=== PATIENT | female | born 1950 | race Caucasian/White ===

== ENCOUNTER 2023-07-30 08:55 | Inpatient (IN) | payer OTHER, MEDICAID ==
[~2023-07-30] VITALS: Ht 154.9 cm; Wt 65.8 kg
[2023-07-30 08:57] VITALS: BP 123/70; PULSE 62; RESP 16; TEMP 97.3; O2SAT 98
[2023-07-30 09:39] LABS: BASOPHILS # (AUTO) 0.1 K/uL (0.00-0.22); BASOPHILS % (AUTO) 1.1 % (0.0-2.0); EOSINOPHILS # (AUTO) 0.2 K/uL (0-0.4); HEMATOCRIT 36.8 % (36-48); HEMOGLOBIN 12.3 g/dL (12.0-16.0); LYMPHOCYTES # (AUTO) 1.7 K/uL (2.5-16.5); LYMPHOCYTES % (AUTO) 29.4 % (20.5-51.1); MEAN CORPUSCULAR HEMOGLOBIN 30 pg (27-31); MEAN CORPUSCULAR HGB CONC 33 g/dL (33-37); MEAN CORPUSCULAR VOLUME 88.9 fL (80-94); MONOCYTES # (AUTO) 0.4 K/uL (0.8-1.0); MONOCYTES % (AUTO) 6.7 % (1.7-9.3); NEUTROPHILS # (AUTO) 3.3 K/uL (1.8-7.7); NEUTROPHILS % (AUTO) 58.8 % (42.2-75.2); PLATELET COUNT (AUTO) 245 K/uL (140-450); RED BLOOD CELL COUNT(AUTO) 4.14 MIL/uL (4.20-5.40); RED CELL DISTRIBUTION WIDTH 13.9 % (11.6-13.7); WHITE BLOOD COUNT (AUTO) 5.7 K/uL (4.8-10.8)
[2023-07-30 09:48] LABS: CALCIUM 8.6 mg/dL (8.5-10.1); CARBON DIOXIDE 27.4 mmol/L (21-32); CHLORIDE 109 mmol/L (98-107); CREATININE 0.7 mg/dL (0.6-1.3); GLUCOSE 93 mg/dL (74-106); POTASSIUM 3.4 mmol/L (3.5-5.1); SODIUM SERUM 144 mmol/L (136-145); UREA NITROGEN, BLOOD 12 mg/dL (7-18)
[2023-07-30 09:52] LABS: INR 1.03 (0.8-1.2); PARTIAL THROMBOPLASTIN TIME 26.7 secs (22-35.6); PROTHROMBIN TIME 10.8 secs (10.8-13.4)
[2023-07-30 09:58] LABS: ALANINE AMINOTRANSFERASE 21 U/L (12-78); ALKALINE PHOSPHATASE 127 U/L (50-136); ASPARTATE AMINOTRANSFERASE 20 U/L (15-37); BILIRUBIN,DIRECT 0.2 mg/dL (0.0-0.3); LIPASE 37 U/L (16-77); MAGNESIUM 2.1 mg/dL (1.8-2.4); PHOSPHORUS 3.9 mg/dL (2.5-4.9); TOTAL BILIRUBIN 0.7 mg/dL (0.0-1.0); TOTAL PROTEIN, SERUM 6.5 g/dL (6.4-8.2)
[2023-07-30] MEDS ORDERED: LORazepam 1 MG TAB PO PRN (17:00)
[2023-07-30] MEDS ORDERED: hydrALAZINE 20 MG/ML VIAL IVP PRN (17:00)
[2023-07-30] MEDS ORDERED: HYDROcodone/APAP 5/325 MG 1 TAB TAB PO PRN (17:00)
[2023-07-30] MEDS ORDERED: ONDANSETRON 4 MG/2 ML VIAL IVP PRN (17:00)
[2023-07-30] MEDS ORDERED: ZOLPIDEM 5 MG TAB PO PRN (17:00)
[2023-07-30] MEDS: NACL 0.9% 1,000 ML IV SCH (17:34)
[2023-07-30] MEDS ORDERED: ASPI-1822 PO (18:30)
[2023-07-30] MEDS ORDERED: ATOR40TA40 PO (18:31)
[2023-07-30] MEDS ORDERED: CEPH-588 PO (18:32)
[2023-07-30] MEDS ORDERED: FLUT16SP10 NS ×2 (18:47)
[2023-07-30] MEDS ORDERED: MELA5TAB68 PO (18:49)
[2023-07-30] MEDS ORDERED: METO50TE PO (18:50)
[2023-07-30] MEDS ORDERED: QUET50TA PO (18:51)
[2023-07-30] MEDS ORDERED: SENN-73 PO (18:52)
[2023-07-30 19:21] VITALS: O2SAT 99
[2023-07-30 20:35] VITALS: BP 148/63; PULSE 59; PULSE 60; RESP 16; TEMP 98.1; O2SAT 97
[2023-07-31] VITALS (7 sets, daily range): BP systolic 126–156; BP diastolic 57–76; PULSE 57–78; RESP 16–18; TEMP 96.8–99; O2SAT 97–99
[2023-07-31 07:04] LABS: BASOPHILS % (AUTO) 0.5 % (0.0-2.0); EOSINOPHILS # (AUTO) 0.3 K/uL (0-0.4); EOSINOPHILS % (AUTO) 4.3 % (0.0-4.0); HEMATOCRIT 39.1 % (36-48); HEMOGLOBIN 13.1 g/dL (12.0-16.0); LYMPHOCYTES # (AUTO) 1.9 K/uL (2.5-16.5); LYMPHOCYTES % (AUTO) 28.3 % (20.5-51.1); MEAN CORPUSCULAR HEMOGLOBIN 29 pg (27-31); MEAN CORPUSCULAR HGB CONC 34 g/dL (33-37); MEAN CORPUSCULAR VOLUME 87.5 fL (80-94); MONOCYTES # (AUTO) 0.4 K/uL (0.8-1.0); MONOCYTES % (AUTO) 6.2 % (1.7-9.3); NEUTROPHILS # (AUTO) 4.2 K/uL (1.8-7.7); NEUTROPHILS % (AUTO) 60.7 % (42.2-75.2); PLATELET COUNT (AUTO) 258 K/uL (140-450); RED BLOOD CELL COUNT(AUTO) 4.47 MIL/uL (4.20-5.40); RED CELL DISTRIBUTION WIDTH 14.1 % (11.6-13.7); WHITE BLOOD COUNT (AUTO) 6.9 K/uL (4.8-10.8)
[2023-07-31] MEDS: PANTOPRAZOLE 40 MG INJ VIAL IVP SCH (08:47)
[2023-07-31] MEDS: DOCUSATE SODIUM 100 MG GELCAP PO SCH (09:00)
[2023-07-31 11:07] LABS: ALANINE AMINOTRANSFERASE 26 U/L (12-78); ALBUMIN 3.1 g/dL (3.4-5.0); ALKALINE PHOSPHATASE 131 U/L (50-136); ANION GAP 17.8 (8-16); ASPARTATE AMINOTRANSFERASE 23 U/L (15-37); CALCIUM 8.4 mg/dL (8.5-10.1); CARBON DIOXIDE 22.8 mmol/L (21-32); CHLORIDE 107 mmol/L (98-107); CREATININE 0.6 mg/dL (0.6-1.3); GLUCOSE 75 mg/dL (74-106); POTASSIUM 3.6 mmol/L (3.5-5.1); SODIUM SERUM 144 mmol/L (136-145); TOTAL BILIRUBIN 0.6 mg/dL (0.0-1.0); UREA NITROGEN, BLOOD 9 mg/dL (7-18)
[2023-07-31 11:52] LABS: CHOL/HDL RATIO 2.2 (1-4.5)
[2023-07-31] MEDS: ASPIRIN 81 MG TAB.CHEW PO SCH (13:48)
[2023-07-31] MEDS: ATORVASTATIN 80 MG TAB PO SCH (13:48)
[2023-08-01] VITALS (7 sets, daily range): BP systolic 112–137; BP diastolic 55–83; PULSE 63–78; RESP 14–18; TEMP 97.2–98.7; O2SAT 95–98
[2023-08-01 07:28] LABS: BASOPHILS # (AUTO) 0.1 K/uL (0.00-0.22); BASOPHILS % (AUTO) 0.8 % (0.0-2.0); EOSINOPHILS # (AUTO) 0.2 K/uL (0-0.4); EOSINOPHILS % (AUTO) 3.1 % (0.0-4.0); HEMATOCRIT 38.7 % (36-48); HEMOGLOBIN 13.1 g/dL (12.0-16.0); LYMPHOCYTES # (AUTO) 1.9 K/uL (2.5-16.5); LYMPHOCYTES % (AUTO) 24.4 % (20.5-51.1); MEAN CORPUSCULAR HEMOGLOBIN 30 pg (27-31); MEAN CORPUSCULAR HGB CONC 34 g/dL (33-37); MEAN CORPUSCULAR VOLUME 87.6 fL (80-94); MONOCYTES # (AUTO) 0.5 K/uL (0.8-1.0); MONOCYTES % (AUTO) 6.2 % (1.7-9.3); NEUTROPHILS % (AUTO) 65.5 % (42.2-75.2); PLATELET COUNT (AUTO) 267 K/uL (140-450); RED BLOOD CELL COUNT(AUTO) 4.42 MIL/uL (4.20-5.40); WHITE BLOOD COUNT (AUTO) 7.7 K/uL (4.8-10.8)
[2023-08-01 08:13] LABS: ALANINE AMINOTRANSFERASE 20 U/L (12-78); ALBUMIN 2.9 g/dL (3.4-5.0); ALKALINE PHOSPHATASE 120 U/L (50-136); ANION GAP 13.2 (8-16); ASPARTATE AMINOTRANSFERASE 19 U/L (15-37); CALCIUM 8.6 mg/dL (8.5-10.1); CARBON DIOXIDE 25.3 mmol/L (21-32); CHLORIDE 107 mmol/L (98-107); CREATININE 0.7 mg/dL (0.6-1.3); GLUCOSE 80 mg/dL (74-106); POTASSIUM 3.5 mmol/L (3.5-5.1); SODIUM SERUM 142 mmol/L (136-145); TOTAL BILIRUBIN 0.9 mg/dL (0.0-1.0); TOTAL PROTEIN, SERUM 6.6 g/dL (6.4-8.2); UREA NITROGEN, BLOOD 8 mg/dL (7-18)
[2023-08-02] VITALS: BP 148/67; PULSE 62; RESP 16; TEMP 97.5; O2SAT 98
[2023-08-02 06:48] LABS: BASOPHILS % (AUTO) 0.6 % (0.0-2.0); EOSINOPHILS # (AUTO) 0.2 K/uL (0-0.4); EOSINOPHILS % (AUTO) 3.3 % (0.0-4.0); HEMATOCRIT 37.9 % (36-48); HEMOGLOBIN 12.6 g/dL (12.0-16.0); LYMPHOCYTES # (AUTO) 1.9 K/uL (2.5-16.5); LYMPHOCYTES % (AUTO) 25.4 % (20.5-51.1); MEAN CORPUSCULAR HEMOGLOBIN 29 pg (27-31); MEAN CORPUSCULAR HGB CONC 33 g/dL (33-37); MEAN CORPUSCULAR VOLUME 87.7 fL (80-94); MONOCYTES # (AUTO) 0.6 K/uL (0.8-1.0); MONOCYTES % (AUTO) 7.9 % (1.7-9.3); NEUTROPHILS # (AUTO) 4.7 K/uL (1.8-7.7); NEUTROPHILS % (AUTO) 62.8 % (42.2-75.2); PLATELET COUNT (AUTO) 247 K/uL (140-450); RED BLOOD CELL COUNT(AUTO) 4.32 MIL/uL (4.20-5.40); WHITE BLOOD COUNT (AUTO) 7.4 K/uL (4.8-10.8)
[2023-08-02 07:36] LABS: ALANINE AMINOTRANSFERASE 16 U/L (12-78); ALBUMIN 2.7 g/dL (3.4-5.0); ALKALINE PHOSPHATASE 112 U/L (50-136); ASPARTATE AMINOTRANSFERASE 18 U/L (15-37); CALCIUM 7.8 mg/dL (8.5-10.1); CARBON DIOXIDE 24.3 mmol/L (21-32); CHLORIDE 110 mmol/L (98-107); CREATININE 0.6 mg/dL (0.6-1.3); GLUCOSE 81 mg/dL (74-106); POTASSIUM 3.3 mmol/L (3.5-5.1); SODIUM SERUM 142 mmol/L (136-145); TOTAL BILIRUBIN 0.7 mg/dL (0.0-1.0); UREA NITROGEN, BLOOD 10 mg/dL (7-18)
[2023-08-02 08:00] VITALS: BP 159/70; PULSE 71; RESP 14; RESP 18; TEMP 97.7; O2SAT 99
[2023-08-02] MEDS: POTASSIUM CHLORIDE 10 MEQ TABER PO ONE (09:35)
[2023-08-02] MEDS ORDERED: AMLO5TAB PO (12:33)
[2023-08-02 12:48] VITALS: BP 159/70; PULSE 71; RESP 18; TEMP 97.7
== END 2023-08-02 14:15 | disposition home or self-care (01) | DRG 68 ==
LOC: MED 08:55 → MTU 16:56
PROVIDERS: ADMIT Student in an Organized Health Care Education/Training Program; ATTEND Student in an Organized Health Care Education/Training Program
DX: I65.23 Occlusion and stenosis of bilateral carotid arteries (principal); I69.351 Hemiplegia and hemiparesis following cerebral infarction affecting right dominant side; I10 Essential (primary) hypertension; E78.5 Hyperlipidemia, unspecified; E87.6 Hypokalemia
CPT/HCPCS: 36415; 70450; 71045; 80048; 80053; 80076; 83690; 83735; 84100; 84484; 85025; 85610; 85730; 87081; 93005; 99291; C9113; Q9967